=== PATIENT | male | born 1960 | race Two or more races ===

== ENCOUNTER 2024-01-29 19:01 | Inpatient (IN) | payer OTHER ==
[~2024-01-29] VITALS: Ht 147.3 cm; Wt 66.7 kg
[2024-01-29] MEDS ORDERED: SYNTHROID100 MCG PO (19:17)
[2024-01-29] MEDS ORDERED: LOSARTAN POTAS100 MG PO (19:18)
[2024-01-29] MEDS ORDERED: CLARITIN10 MG (19:18)
[2024-01-29] MEDS ORDERED: AMLODIPINE-OLM1 EACH (19:18)
[2024-01-29] MEDS ORDERED: MELOXICAM15 MG PO (19:18)
[2024-01-29] MEDS ORDERED: VITAMIN B-121000 MC4 PO (19:19)
[2024-01-29] MEDS ORDERED: LENALIDOMIDE25 MG PO (19:19)
[2024-01-29] MEDS ORDERED: NORFLEX100MG PO (19:20)
[2024-01-29] MEDS ORDERED: GABAPENTIN300 M2 PO (19:20)
[2024-01-29] MEDS ORDERED: ZOVIRAX400 MG PO (19:20)
[2024-01-29] MEDS ORDERED: BORTEZOMIB1 MG IJ (19:21)
[2024-01-29] MEDS ORDERED: FAMOTIDINE/PF 20 MG/2 ML VIAL IV ONE (20:00)
[2024-01-29] MEDS ORDERED: ONDANSETRON HCL 2 MG/ML VIAL IV ONE (20:00)
[2024-01-29] MEDS ORDERED: 0.9 % SODIUM CHLORIDE 1,000 ML IV ONE (20:00)
[2024-01-29 21:05] LABS: HEMATOCRIT 29.3 % (39.0-48.0); MEAN CELL VOLUME 88.6 fL (80.0-100.00); MEAN CORPUSCULAR HEMOGLOBIN 30.3 pg (27.00-32.0); MEAN CORPUSCULAR HGB CONC 34.2 g/dl (32.0-36.0); PLATELET COUNT 302 K/uL (150-450); RED BLOOD COUNT 3.31 M/uL (4.00-6.00); RED CELL DISTRIBUTION WIDTH 15.4 % (11.5-14.5)
[2024-01-29 21:36] LABS: BILIRUBIN TOTAL 0.47 mg/dL (0.3-1.2); CALCIUM 8.9 mg/dL (8.5-10.1); CREATININE SERUM 2.2 mg/dL (0.70-1.30); GFR 30.48; POTASSIUM 4.52 mEq/L (3.5-5.1)
[2024-01-30 06:29] LABS: URINE APPEARANCE Turbid; URINE BILIRRUBIN Moderate (NEGATIVE); URINE BLOOD Negative; URINE COLOR Dark Yellow; URINE GLUCOSE Negative (NEGATIVE); URINE KETONE 15 (NEGATIVE); URINE LEUKOCYTE Trace; URINE NITRATE Negative; URINE PROTEIN 30 (NEGATIVE)
[2024-01-30 06:33] LABS: URINE BACTERIA 181.4 uL (0.0-1933); URINE EPITHELIAL CELLS 41.5 uL (0.0-38.8); URINE RBC 21.3 uL (0.0-20.8); URINE WBC 8.6 uL (0.0-23.2)
[2024-01-30] MEDS ORDERED: MORPHINE SULFATE 4 MG/ML VIAL IV PRN (07:00)
[2024-01-30 07:03] LABS: URINE CAST > 21.83 uL (0.0-1.40); URINE CRYSTALS MODERATE /HPF
[2024-01-30] MEDS ORDERED: ONDANSETRON HCL 2 MG/ML VIAL IV PRN (07:15)
[2024-01-30] MEDS ORDERED: ENALAPRILAT DIHYDRATE 1.25 MG/ML VIAL IV PRN (07:15)
[2024-01-30] MEDS ORDERED: FAMOTIDINE/PF 20 MG/2 ML VIAL IV ONE (08:25)
[2024-01-30] MEDS ORDERED: PIPERACILLIN/TAZOBACTAM SODIUM 3.375 GM VIAL IV SCH (12:00)
[2024-01-30] MEDS ORDERED: MORPHINE SULFATE 4 MG/ML CARTRIDGE IV PRN (20:00)
[2024-01-31 06:51] LABS: ALBUMIN 2.6 gm/dL (3.4-5.0); BILIRUBIN TOTAL 0.39 mg/dL (0.3-1.2); CALCIUM 8.9 mg/dL (8.5-10.1); CREATININE SERUM 1.44 mg/dL (0.70-1.30); GFR 49.71; GLOBULINA 4.3 G/DL (2.4-3.5); POTASSIUM 3.96 mEq/L (3.5-5.1); TOTAL PROTEIN 6.9 gm/dL (6.4-8.2)
[2024-01-31 06:54] LABS: HEMATOCRIT 29.1 % (39.0-48.0); HEMOGLOBIN 9.8 g/dL (13-16.00); MEAN CELL VOLUME 91.4 fL (80.0-100.00); MEAN CORPUSCULAR HEMOGLOBIN 30.8 pg (27.00-32.0); MEAN CORPUSCULAR HGB CONC 33.7 g/dl (32.0-36.0); PLATELET COUNT 279 K/uL (150-450); RED BLOOD COUNT 3.18 M/uL (4.00-6.00); RED CELL DISTRIBUTION WIDTH 15.3 % (11.5-14.5)
[2024-01-31] MEDS ORDERED: 0.9 % SODIUM CHLORIDE 1,000 ML IV SCH (09:00)
== END 2024-02-03 13:12 | disposition home or self-care (01) | DRG 393 ==
LOC: ER 19:02 → SEC-K 01-30 08:07 → MEDJ 01-31 23:19
PROVIDERS: Nurse Practitioner Family; ADMIT Internal Medicine; ATTEND Internal Medicine
PROC: BW21ZZZ Computerized Tomography (CT Scan) of Abdomen and Pelvis (ICD-10-PCS; 2024-01-29)
PROC: 0D9670Z Drainage of Stomach with Drainage Device, Via Natural or Artificial Opening (ICD-10-PCS; 2024-01-30)
PROC: 0J970ZZ Drainage of Back Subcutaneous Tissue and Fascia, Open Approach (ICD-10-PCS; principal; 2024-01-31)
DX: K45.0 Other specified abdominal hernia with obstruction, without gangrene (principal); J69.0 Pneumonitis due to inhalation of food and vomit; D84.9 Immunodeficiency, unspecified; L02.212 Cutaneous abscess of back [any part, except buttock and flank]; I10 Essential (primary) hypertension; E03.9 Hypothyroidism, unspecified; Z85.79 Personal history of other malignant neoplasms of lymphoid, hematopoietic and related tissues

== ENCOUNTER 2024-03-04 21:44 | Inpatient (IN) | payer OTHER ==
[~2024-03-04] VITALS: Ht 147.3 cm; Wt 60.3 kg
[~2024-03-04 21:44] MED LIST: AMLODIPINE-OLM1 EACH; BORTEZOMIB1 MG IJ; CLARITIN10 MG; GABAPENTIN300 M2 PO; LENALIDOMIDE25 MG PO; LOSARTAN POTAS100 MG PO; MELOXICAM15 MG PO; NORFLEX100MG PO; SYNTHROID100 MCG PO; VITAMIN B-121000 MC4 PO; ZOVIRAX400 MG PO
--- NOTE | 2024-03-04 21:55 | NUR ---
SE RECIBE PTE MASCULINO ALERTA Y ORIENTADO EN [place] ESFERAS EN AMBULANCIA EN COMPANIA DE PARAMEDICOS QUIENES REFIEREN DOLOR ABDOMINAL, CONSTIPACION Y FALTA DE APETITO DESDE HOY AL MEDIO [place]. PTE CON HX DE CA EN TRATAMIENTO DE QUIMIO ORAL. SE SOPHIA S/V Y SE UBICA.
[2024-03-04] MEDS ORDERED: 0.9 % SODIUM CHLORIDE 1,000 ML IV SCH (22:30)
[2024-03-04] MEDS ORDERED: PIPERACILLIN/TAZOBACTAM SODIUM 3.375 GM VIAL IV ONE ×2 (22:30→22:38)
--- NOTE | 2024-03-04 22:48 | NUR ---
PTE MASCULINO EVALUADO POR . SE ORIENTA SOBRE ORDENES DE [place] REFIERE COMPRENDER. SE COLECTAN MUESTRAS DE LABORATORIOS Y SE CANALIZA VENA BAJO MEDIDAS ASEPTICAS. SE ADMINISTRAN MEDICAMENTOS, BAJO MEDIDAS ASEPTICAS. SE NOTIFICA A RADIOLOGIA PARA CT PENDIENTE.
--- NOTE | 2024-03-04 23:26 | NUR ---
PTE ALERTA Y ORIENTADA X3, EN CAMA BARANDAS ELEVADAS POR GARCIA SEGURIDAD EN POSCION SEMI SENTADO. PTE RECIBIENDO INFUSION DE 0.9 NSS @ 100 ML/HR. PTE PENDIENTE CT IV.
[2024-03-04 23:27] LABS: HEMATOCRIT 29.3 % (39.0-48.0); HEMOGLOBIN 10.2 g/dL (13-16.00); MEAN CORPUSCULAR HEMOGLOBIN 32.1 pg (27.00-32.0); MEAN CORPUSCULAR HGB CONC 34.9 g/dl (32.0-36.0); PLATELET COUNT 646 K/uL (150-450); RED BLOOD COUNT 3.18 M/uL (4.00-6.00); RED CELL DISTRIBUTION WIDTH 17.6 % (11.5-14.5)
[2024-03-04 23:48] LABS: BILIRUBIN TOTAL 0.4 mg/dL (0.3-1.2); CALCIUM 9.2 mg/dL (8.5-10.1); CREATININE SERUM 0.83 mg/dL (0.70-1.30); GFR 93.88; POTASSIUM 3.97 mEq/L (3.5-5.1)
[2024-03-05] MEDS ORDERED: KETOROLAC TROMETHAMINE 30 MG VIAL IV STA (01:50)
[2024-03-05] MEDS ORDERED: KETOROLAC TROMETHAMINE 30 MG VIAL ONE (01:53)
[2024-03-05 02:31] LABS: URINE APPEARANCE Cloudy; URINE BILIRRUBIN Small (NEGATIVE); URINE BLOOD Negative; URINE COLOR Dark Yellow; URINE GLUCOSE Negative (NEGATIVE); URINE KETONE 15 (NEGATIVE); URINE LEUKOCYTE Negative; URINE NITRATE Negative; URINE PROTEIN 30 (NEGATIVE)
[2024-03-05 02:35] LABS: URINE BACTERIA 429.6 uL (0.0-1933); URINE WBC 4.6 uL (0.0-23.2)
[2024-03-05 02:46] LABS: URINE CAST > 21.83 uL (0.0-1.40)
[2024-03-05 02:59] LABS: URINE CRYSTALS MODERATE /HPF
[2024-03-05] MEDS ORDERED: MEPERIDINE HCL/PF 25 MG/ML VIAL IV STA (04:12)
[2024-03-05] MEDS ORDERED: LIDOCAINE HCL VISCOUS 20MG/ML BLIST 15ML MM ONE (05:38)
[2024-03-05] MEDS ORDERED: LIDOCAINE HCL 2% JELLY 6 ML SYRINGE MM ONE (05:38)
[2024-03-05] MEDS ORDERED: PIPERACILLIN/TAZOBACTAM SODIUM 3.375 GM in 0.9 % SODIUM CHLORIDE 100 ML IV SCH ×2 (08:00→14:00)
[2024-03-05] MEDS ORDERED: MEPERIDINE HCL/PF 25 MG/ML VIAL IV PRN ×2 (08:15→22:45)
[2024-03-05] MEDS ORDERED: PIPERACILLIN/TAZOBACTAM SODIUM 3.375 GM VIAL IV ONE (08:45)
[2024-03-05] MEDS ORDERED: ONDANSETRON HCL 4 MG in 0.9 % SODIUM CHLORIDE 50 ML IV PRN (13:15)
[2024-03-05] MEDS ORDERED: MORPHINE SULFATE 4 MG/ML CARTRIDGE IV PRN (13:15)
[2024-03-05] MEDS ORDERED: 0.9 % SODIUM CHLORIDE 1,000 ML IV SCH (13:15)
[2024-03-05] MEDS ORDERED: ENALAPRILAT DIHYDRATE 1.25 MG/ML VIAL IV PRN (14:00)
[2024-03-05 14:09] LABS: INR 1.1; PARTIAL THROMBOPLASTIN TIME 36.9 SECONDS (22.0-34.0)
[2024-03-05 14:11] LABS: PROTHROMBIN TIME 11.9 SECONDS (9.0-11.5)
[2024-03-05 14:23] LABS: AMYLASE 60 U/L (25-115); LIPASE 12 U/L (13-75)
[2024-03-05 15:33] VITALS: BP 100/67; O2SAT 100
[2024-03-05] MEDS ORDERED: ONDANSETRON HCL 2 MG/ML VIAL ONE (16:16)
[2024-03-05 20:34] VITALS: BP 100/68; O2SAT 98
[2024-03-06] VITALS: BP 90/51; O2SAT 99
[2024-03-06 08:00] VITALS: BP 107/58; O2SAT 97
[2024-03-06] MEDS ORDERED: ENOXAPARIN SODIUM 40 MG/0.4 ML SYRINGE SUBCUTANEO SCH (10:38)
[2024-03-06] MEDS ORDERED: DEXTROSE 5 %-0.45 % SOD CHLORD 1,000 ML IV SCH (10:45)
[2024-03-06] MEDS ORDERED: 0.9 % SODIUM CHLORIDE 1,000 ML IV ONE (10:45)
[2024-03-06] MEDS ORDERED: DIATRIZOATE MEGLUMINE, SODIUM 30 ML BOTTLE PO STA (11:25)
[2024-03-06 14:03] LABS: HEMOGLOBIN 10.8 g/dL (13-16.00); MEAN CELL VOLUME 91.2 fL (80.0-100.00); MEAN CORPUSCULAR HEMOGLOBIN 31.6 pg (27.00-32.0); MEAN CORPUSCULAR HGB CONC 34.7 g/dl (32.0-36.0); RED CELL DISTRIBUTION WIDTH 18.5 % (11.5-14.5)
[2024-03-06 14:14] LABS: PLATELET COUNT 538 K/uL (150-450)
[2024-03-06 14:49] LABS: ALBUMIN 2.4 gm/dL (3.4-5.0); CREATININE SERUM 1.52 mg/dL (0.70-1.30); GFR 46.7; PHOSPHOROUS 4.7 mg/dL (2.5-4.9); POTASSIUM 3.76 mEq/L (3.5-5.1)
[2024-03-06 15:45] VITALS: BP 115/70; O2SAT 99
[2024-03-07] VITALS (16 sets, daily range): BP systolic 50–194; BP diastolic 31–73; O2SAT 96–100
[2024-03-07] MEDS ORDERED: NOREPINEPHRINE BITARTRATE 1 MG/ML AMPUL IV ONE (01:04)
[2024-03-07] MEDS ORDERED: NOREPINEPHRINE BITARTRATE 8 MG in DEXTROSE 5 % IN WATER 250 ML IV SCH (01:30)
[2024-03-07] MEDS ORDERED: DOPamine HCL 400MG/D5w 250ML PLAST..BAG IV ONE (04:57)
[2024-03-07] MEDS ORDERED: HYDROCORTISONE SODIUM SUCC/PF 100 MG VIAL ONE (05:44)
[2024-03-07] MEDS ORDERED: HYDROCORTISONE SODIUM SUCC/PF 50 MG/ML ML IV ONE (05:45)
[2024-03-07] MEDS ORDERED: DOPamine HCL IN DEXTROSE 5 % 250 ML IV SCH (05:45)
[2024-03-07] MEDS ORDERED: 0.9 % SODIUM CHLORIDE 1,000 ML IV SCH (10:45)
[2024-03-07 11:26] LABS: HEMATOCRIT 33.8 % (39.0-48.0); HEMOGLOBIN 11.2 g/dL (13-16.00); MEAN CELL VOLUME 93.3 fL (80.0-100.00); MEAN CORPUSCULAR HGB CONC 33.2 g/dl (32.0-36.0); PLATELET COUNT 536 K/uL (150-450); RED BLOOD COUNT 3.62 M/uL (4.00-6.00); RED CELL DISTRIBUTION WIDTH 18.8 % (11.5-14.5)
[2024-03-07 11:52] LABS: ALBUMIN 1.9 gm/dL (3.4-5.0); BILIRUBIN TOTAL 0.97 mg/dL (0.3-1.2); CALCIUM 7.9 mg/dL (8.5-10.1); CREATININE SERUM 2.44 mg/dL (0.70-1.30); GFR 27.05; GLOBULINA 4.5 G/DL (2.4-3.5); POTASSIUM 4.18 mEq/L (3.5-5.1); TOTAL PROTEIN 6.4 gm/dL (6.4-8.2)
[2024-03-07] MEDS ORDERED: HYDROCORTISONE SODIUM SUCC/PF 50 MG/ML ML IV SCH (13:00)
[2024-03-07] MEDS ORDERED: MEROPENEM 1,000 MG in 0.9 % SODIUM CHLORIDE 100 ML IV SCH (17:00)
[2024-03-07 17:44] LABS: URINE APPEARANCE Turbid; URINE BILIRRUBIN Negative (NEGATIVE); URINE BLOOD Small; URINE COLOR Dark Yellow; URINE KETONE Trace (NEGATIVE); URINE LEUKOCYTE Negative; URINE NITRATE Negative
[2024-03-07 17:47] LABS: URINE BACTERIA 374.2 uL (0.0-1933); URINE EPITHELIAL CELLS 119.5 uL (0.0-38.8); URINE RBC 8.4 uL (0.0-20.8); URINE WBC 68.4 uL (0.0-23.2)
[2024-03-07 18:09] LABS: URINE CAST 0.93 uL (0.0-1.40); URINE GLUCOSE 100 MG/DL (NEGATIVE); URINE PROTEIN 100 (NEGATIVE); URINE SPERM FEW
[2024-03-07] MEDS ORDERED: AMIODARONE HCL 50 MG/ML AMPUL IV ONE (18:10)
[2024-03-07] MEDS ORDERED: 0.9 % SODIUM CHLORIDE 500 ML IV ONE (22:45)
[2024-03-07] MEDS ORDERED: PHENYLEPHRINE HCL 20 MG in 0.9 % SODIUM CHLORIDE 250 ML IV SCH (22:45)
[2024-03-07] MEDS ORDERED: METOPROLOL TARTRATE 5MG/5ML AMPUL IV SCH (22:45)
[2024-03-08] VITALS (22 sets, daily range): BP systolic 68–118; BP diastolic 47–76; O2SAT 94–100
[2024-03-08] MEDS ORDERED: CHLORHEXIDINE GLUCONATE 120 ML BOTTLE TOP ONE (10:40)
[2024-03-08] MEDS ORDERED: LINEZOLID IN DEXTROSE 5% 300 ML IV SCH (17:00)
[2024-03-08] MEDS ORDERED: 0.9 % SODIUM CHLORIDE 500 ML IV ONE (17:45)
[2024-03-09] VITALS (24 sets, daily range): BP systolic 78–105; BP diastolic 47–67; O2SAT 97–100
[2024-03-09 08:02] LABS: CREATININE SERUM 3.33 mg/dL (0.70-1.30); GFR 18.89
[2024-03-09 08:28] LABS: CALCIUM 5.8 mg/dL (8.5-10.1); POTASSIUM 2.83 mEq/L (3.5-5.1)
[2024-03-09] MEDS ORDERED: POTASSIUM CHLORIDE IN WATER 40 MEQ/100 ML PIGGYBAG IV NR (09:00)
[2024-03-09] MEDS ORDERED: 0.9 % SODIUM CHLORIDE 500 ML IV ONE (14:15)
[2024-03-09] MEDS ORDERED: SODIUM CHLORIDE FOR INHALATION 1 VIAL.NEB IH SCH (15:49)
[2024-03-09] MEDS ORDERED: IPRATROPIUM BROMIDE 0.5 MG/2.5 ML AMPUL.NEB IH SCH (15:49)
[2024-03-10] VITALS (19 sets, daily range): BP systolic 77–110; BP diastolic 40–87; O2SAT 97–100
[2024-03-10] MEDS ORDERED: SODIUM CL 0.9% 250 ML IV.SOLN ONE ×2 (00:11)
[2024-03-10 08:58] LABS: MEAN CELL VOLUME 90.1 fL (80.0-100.00); MEAN CORPUSCULAR HGB CONC 33.7 g/dl (32.0-36.0); RED BLOOD COUNT 2.59 M/uL (4.00-6.00); RED CELL DISTRIBUTION WIDTH 19.3 % (11.5-14.5)
[2024-03-10] MEDS ORDERED: ENOXAPARIN SODIUM 30 MG/0.3 ML SYRINGE SUBCUTANEO SCH (09:00)
[2024-03-10 09:23] LABS: MEAN CORPUSCULAR HEMOGLOBIN 30.5 pg (27.00-32.0)
[2024-03-10 09:24] LABS: HEMATOCRIT 23.4 % (39.0-48.0)
[2024-03-10 09:25] LABS: PLATELET COUNT 61 K/uL (150-450)
[2024-03-10 09:26] LABS: HEMOGLOBIN 7.9 g/dL (13-16.00)
[2024-03-10 09:43] LABS: ALBUMIN 1.3 gm/dL (3.4-5.0); ALKALINE PHOSPHATASE 72 U/L (50-136); ALT/SGPT 18 U/L (12-78); AST/SGOT 31 U/L (15-37); BILIRUBIN TOTAL 0.44 mg/dL (0.3-1.2); CARBON DIOXIDE 17 mEq/L (21-32); CHLORIDE 113 mmol/L (98-107); CREATININE SERUM 3.34 mg/dL (0.70-1.30); GFR 18.83; GLOBULINA 2.7 G/DL (2.4-3.5); GLUCOSE FASTING 139 mg/dL (65-100); PHOSPHOROUS 2.7 mg/dL (2.5-4.9); SODIUM 145 mmol/L (136-145)
[2024-03-10 09:53] LABS: ANION GAP 18 (10.0-20.0); BUN CREA RATIO 25 (7.0-25.0); OSMOLALITY SERUM 316 MOSM/KG (275-295)
[2024-03-10 09:54] LABS: BLOOD UREA NITROGEN 84 mg/dL (7-18)
[2024-03-10 09:59] LABS: CALCIUM < 5.0 mg/dL (8.5-10.1); POTASSIUM 2.68 mEq/L (3.5-5.1)
[2024-03-10 10:23] LABS: PH,URINE 5.5 (5.0-8.0); URINE APPEARANCE Turbid; URINE BILIRRUBIN Small (NEGATIVE); URINE COLOR Dark Yellow; URINE KETONE Trace (NEGATIVE); URINE LEUKOCYTE Trace; URINE NITRATE Negative; URINE UROBILINOGEN 0.2 E.U./dl
[2024-03-10 10:25] LABS: URINE BACTERIA 1675.7 uL (0.0-1933); URINE EPITHELIAL CELLS 40.6 uL (0.0-38.8); URINE RBC 89.2 uL (0.0-20.8); URINE WBC 112.2 uL (0.0-23.2)
[2024-03-10] MEDS ORDERED: CALCIUM GLUCONATE 100 MG/ML VIAL IV NR (11:00)
[2024-03-10 11:08] LABS: URINE CAST > 21.83 uL (0.0-1.40)
[2024-03-10 11:09] LABS: URINE BLOOD Trace; URINE GLUCOSE 100 MG/DL (NEGATIVE); URINE PROTEIN 300 (NEGATIVE)
[2024-03-10 11:11] LABS: URINE SPERM MANY
[2024-03-10] MEDS ORDERED: POTASSIUM CHLORIDE IN WATER 40 MEQ/100 ML PIGGYBAG IV SCH (12:00)
[2024-03-10] MEDS ORDERED: Daptomycin 350 MG/VIAL VIAL IV SCH (21:00)
[2024-03-11] VITALS (24 sets, daily range): BP systolic 83–116; BP diastolic 44–72; O2SAT 95–100
[2024-03-11 07:05] LABS: CREATININE SERUM 3.36 mg/dL (0.70-1.30); GFR 18.7; POTASSIUM 3.59 mEq/L (3.5-5.1)
[2024-03-11 07:06] LABS: HEMATOCRIT 28.5 % (39.0-48.0); MEAN CELL VOLUME 88.7 fL (80.0-100.00); MEAN CORPUSCULAR HGB CONC 34.7 g/dl (32.0-36.0); RED BLOOD COUNT 3.21 M/uL (4.00-6.00); RED CELL DISTRIBUTION WIDTH 18.8 % (11.5-14.5)
[2024-03-11 07:16] LABS: CALCIUM 5.3 mg/dL (8.5-10.1)
[2024-03-11 07:37] LABS: MEAN CORPUSCULAR HEMOGLOBIN 30.8 pg (27.00-32.0)
[2024-03-11 07:39] LABS: HEMOGLOBIN 9.9 g/dL (13-16.00); PLATELET COUNT 37 K/uL (150-450)
[2024-03-11] MEDS ORDERED: CALCIUM GLUCONATE 100 MG/ML VIAL IV NR (09:00)
[2024-03-11] MEDS ORDERED: HEPARIN SODIUM,PORCINE 5,000 UNITS/ML VIAL ONE (10:05)
[2024-03-11] MEDS ORDERED: LIDOCAINE HCL 2% ONE (10:16)
[2024-03-11] MEDS ORDERED: HYDROCORTISONE SODIUM SUCC/PF 50 MG/ML ML IV SCH (13:00)
[2024-03-11 15:15] LABS: ALBUMIN 1.2 gm/dL (3.4-5.0); CREATININE SERUM 3.4 mg/dL (0.70-1.30); GFR 18.44; PHOSPHOROUS 2.6 mg/dL (2.5-4.9); POTASSIUM 4.05 mEq/L (3.5-5.1)
[2024-03-11 15:17] LABS: CALCIUM 5.4 mg/dL (8.5-10.1)
[2024-03-11] MEDS ORDERED: HEPARIN SODIUM,PORCINE 5,000 UNITS/ML VIAL SPEPROC NR (16:45)
[2024-03-11] MEDS ORDERED: 0.9 % SODIUM CHLORIDE 1,000 ML IV ONE (19:15)
[2024-03-12] VITALS (20 sets, daily range): BP systolic 54–96; BP diastolic 25–80; O2SAT 77–98
[2024-03-12 06:50] LABS: HEMATOCRIT 28.2 % (39.0-48.0); HEMOGLOBIN 9.7 g/dL (13-16.00); MEAN CELL VOLUME 88.9 fL (80.0-100.00); MEAN CORPUSCULAR HEMOGLOBIN 30.7 pg (27.00-32.0); MEAN CORPUSCULAR HGB CONC 34.5 g/dl (32.0-36.0); RED BLOOD COUNT 3.17 M/uL (4.00-6.00); RED CELL DISTRIBUTION WIDTH 18.9 % (11.5-14.5)
[2024-03-12 07:36] LABS: PLATELET COUNT 16 K/uL (150-450)
[2024-03-12 07:39] LABS: ALBUMIN 1.1 gm/dL (3.4-5.0); BILIRUBIN TOTAL 0.6 mg/dL (0.3-1.2); CREATININE SERUM 2.23 mg/dL (0.70-1.30); GFR 30.01; GLOBULINA 2.7 G/DL (2.4-3.5); MAGNESIUM 1.9 mg/dL (1.8-2.4); POTASSIUM 3.36 mEq/L (3.5-5.1); TOTAL PROTEIN 3.8 gm/dL (6.4-8.2)
[2024-03-12 07:48] LABS: CALCIUM 5.7 mg/dL (8.5-10.1)
[2024-03-12] MEDS ORDERED: DEXTROSE 50 % IN WATER 0.5 G/ML DISP.SYRIN IV ONE (09:39)
[2024-03-12 10:18] LABS: ABG PO2 86.2 mmHg (80-100); ABG pCO2 32.2 mmHg (35-45); BASE EXCESS -14.2 mmol/l; BICARBONATE 12.5 mmol/l (23-25); SaO2 92.9 %; Tco2 13.5 mmol/l
[2024-03-12 10:24] LABS: ABG PH 7.206 (7.35-7.45)
[2024-03-12 10:25] LABS: allen test SATISFACTORY; o2 100 %; puncture site RADIAL RIGHT
[2024-03-12] MEDS ORDERED: SODIUM BICARBONATE 1 MEQ/ML DISP.SYRIN 50ML IV ONE (11:00)
[2024-03-12] MEDS ORDERED: POTASSIUM PHOS,M-BASIC-D-BASIC 15 MM in 0.9 % SODIUM CHLORIDE 250 ML IV ONE (11:00)
[2024-03-12] MEDS ORDERED: IPRATROPIUM BROMIDE 0.5 MG/2.5 ML AMPUL.NEB IH SCH (12:00)
[2024-03-12] MEDS ORDERED: DOPamine 800 MG/250 ML D5W PB IV ONE ×2 (12:13→14:51)
[2024-03-12] MEDS ORDERED: SODIUM BICARBONATE 150 MEQ in DEXTROSE 5 % IN WATER 1,000 ML IV SCH (12:45)
[2024-03-12] MEDS ORDERED: 0.9 % SODIUM CHLORIDE 1,000 ML IV SCH (13:00)
[2024-03-12] MEDS ORDERED: GENTAMICIN SULFATE 40 MG/ML VIAL IV STA (13:09)
[2024-03-12 14:28] LABS: ABG PH 7.104 (7.35-7.45); ABG PO2 68.8 mmHg (80-100); ABG pCO2 44.1 mmHg (35-45); BASE EXCESS -15.7 mmol/l; BICARBONATE 13.5 mmol/l (23-25); SaO2 82.9 %; Tco2 14.9 mmol/l; allen test SATISFACTORY; o2 100 %; puncture site RADIAL RIGHT
[2024-03-12 14:58] LABS: BLOOD UREA NITROGEN 59 mg/dL (7-18); BUN CREA RATIO 27 (7.0-25.0); CARBON DIOXIDE 15 mEq/L (21-32); CHOL HDL RATIO 9.1 (0-5.0); CHOLESTEROL 64 mg/dL (0-200); CREATININE SERUM 2.17 mg/dL (0.70-1.30); GFR 30.97; POTASSIUM 3.84 mEq/L (3.5-5.1); SODIUM 145 mmol/L (136-145)
[2024-03-12] MEDS ORDERED: DOPamine HCL IN DEXTROSE 5 % 250 ML IV SCH (15:00)
[2024-03-12 15:06] LABS: ANION GAP 17 (10.0-20.0); CALCIUM < 5.0 mg/dL (8.5-10.1); GLUCOSE FASTING 229 mg/dL (65-100); HDL 7 mg/dl (40-60); LDL 3 mg/dl (0-130); OSMOLALITY SERUM 312 MOSM/KG (275-295); TRIGLYCERIDES 271 mg/dL (0-150); VLDL 54 (0-39)
[2024-03-12] MEDS ORDERED: AA 4.25%/CALCIUM/LYTES/DEX 10% 1,000 ML CENTRAL SCH (17:00)
[2024-03-12] MEDS ORDERED: CARBOXYMETHYLCELLULOSE SODIUM 1 EACH DROPERETTE OP SCH (17:00)
[2024-03-12] MEDS ORDERED: CHLORHEXIDINE GLUCONATE 15ML BRUSH KIT MM SCH (17:00)
[2024-03-12] MEDS ORDERED: CALCIUM GLUCONATE 100 MG/ML VIAL IV NR (17:00)
[2024-03-12] MEDS ORDERED: HYDROCORTISONE SODIUM SUCC/PF 50 MG/ML ML IV SCH (18:00)
[2024-03-12] MEDS ORDERED: FLUCONAZOLE IN NACL,ISO-OSM 200 ML IV ONE (18:30)
[2024-03-12 19:15] LABS: CHLORIDE 117 mmol/L (98-107)
[2024-03-12] MEDS ORDERED: FLUCONAZOLE IN NACL,ISO-OSM 200 MG/100 ML PIGGYBAG IV ONE (21:15)
[2024-03-12] MEDS ORDERED: DOPamine 800 MG/250 ML D5W PB IV SCH (22:30)
[2024-03-13 01:00] VITALS: BP 55/20
[2024-03-13 02:00] VITALS: BP 65/33
[2024-03-13] MEDS ORDERED: SODIUM BICARBONATE 50MEQ/50ML VIAL IV ONE (03:24)
[2024-03-13 05:00] VITALS: BP 50/34
[2024-03-13 07:04] VITALS: BP 154/74; O2SAT 99
[2024-03-13] MEDS ORDERED: FLUCONAZOLE IN NACL,ISO-OSM 100 ML IV SCH (09:00)
[2024-03-13] MEDS ORDERED: MEROPENEM 1,000 MG in 0.9 % SODIUM CHLORIDE 100 ML IV SCH (17:00)
== END 2024-03-13 08:14 | disposition expired | DRG 388 ==
LOC: ER 21:44 → ICU 03-05 13:33 → SEC-K 03-05 13:33 → MEDI 03-05 18:12 → SURG 03-05 18:14 → ICU 03-07 14:29
PROVIDERS: Emergency Medicine; General Practice; Internal Medicine; Internal Medicine Infectious Disease; Internal Medicine Nephrology; Student in an Organized Health Care Education/Training Program; ADMIT Internal Medicine; ATTEND Internal Medicine
PROC: 4A12X4Z Monitoring of Cardiac Electrical Activity, External Approach (ICD-10-PCS; 2024-03-07)
PROC: BT4JZZZ Ultrasonography of Kidneys and Bladder (ICD-10-PCS; 2024-03-07)
PROC: B24BZZZ Ultrasonography of Heart with Aorta (ICD-10-PCS; 2024-03-08)
PROC: 02HV33Z Insertion of Infusion Device into Superior Vena Cava, Percutaneous Approach (ICD-10-PCS; 2024-03-09)
PROC: 30233N1 Transfusion of Nonautologous Red Blood Cells into Peripheral Vein, Percutaneous Approach (ICD-10-PCS; 2024-03-10)
PROC: 05HM33Z Insertion of Infusion Device into Right Internal Jugular Vein, Percutaneous Approach (ICD-10-PCS; principal; 2024-03-11)
PROC: 5A1D70Z Performance of Urinary Filtration, Intermittent, Less than 6 Hours Per Day (ICD-10-PCS; 2024-03-11)
PROC: 0BH17EZ Insertion of Endotracheal Airway into Trachea, Via Natural or Artificial Opening (ICD-10-PCS; 2024-03-12)
PROC: 5A1935Z Respiratory Ventilation, Less than 24 Consecutive Hours (ICD-10-PCS; 2024-03-12)
DX: K56.609 Unspecified intestinal obstruction, unspecified as to partial versus complete obstruction (principal); A41.9 Sepsis, unspecified organism; J96.01 Acute respiratory failure with hypoxia; N18.6 End stage renal disease; R65.21 Severe sepsis with septic shock; N17.9 Acute kidney failure, unspecified; I48.20 Chronic atrial fibrillation, unspecified; I12.0 Hypertensive chronic kidney disease with stage 5 chronic kidney disease or end stage renal disease; K43.2 Incisional hernia without obstruction or gangrene; I46.9 Cardiac arrest, cause unspecified; I95.9 Hypotension, unspecified; E86.0 Dehydration; I10 Essential (primary) hypertension; R57.1 Hypovolemic shock; E87.6 Hypokalemia; Z99.2 Dependence on renal dialysis; D69.6 Thrombocytopenia, unspecified; Z85.79 Personal history of other malignant neoplasms of lymphoid, hematopoietic and related tissues